=== PATIENT | male | born 1965 | race Caucasian/White ===

== ENCOUNTER 2016-12-17 12:09 | Emergency (ER) | payer OTHER ==
[2016-12-17] MEDS ORDERED: NAPROXEN 250 MG TABLET PO ONE (12:35)
--- NOTE | 2016-12-17 12:37 | ER Document Report ---
ED Medical Screen (RME) - General Chief Complaint: Back Pain Stated Complaint: FALL BACK PAIN Mode of Arrival: Ambulatory Information source: Patient Notes: 51 y/o M presents to ED complaining of left sided lower back pain after fall 2 days ago. Patient reports was opening a door of work trailer when his foot slipped and twisted his back landing on his left side. Denies extremity weakness or paresthesias. I have greeted and performed a rapid initial assessment of this patient. A comprehensive ED assessment and evaluation of the patient, analysis of test results and completion of the medical decision making process will be conducted by additional ED providers. TRAVEL OUTSIDE OF THE [place] IN LAST 30 DAYS: No - Related Data Allergies/Adverse Reactions: No Known Allergies Allergy (Unverified 12/17/16 12:35) Past Medical History - Social History Chew tobacco use (# tins/day): No Frequency of alcohol use: Occasional Drug Abuse: None Renal/ Medical History: Denies: Hx Peritoneal Dialysis Physical Exam - General General appearance: Appears well, Alert In distress: None - Respiratory Respiratory status: No respiratory distress
[2016-12-17] MEDS ORDERED: OXYCODONE-ACETAMINOPHEN 5-325 MG TABLET PO ONE (14:37)
--- NOTE | 2016-12-17 14:37 | ER Document Report ---
ED Neck/Back Problem - General Mode of Arrival: Ambulatory Information source: Patient TRAVEL OUTSIDE OF THE [place] IN LAST 30 DAYS: No - HPI Patient complains to provider of: Pain, Lower back Onset: Other - 4 days Associated symptoms: Other - See above <VALERIANO LANGSTON - Last Filed: 12/17/16 15:16> <STUARTRUBY KATHY - Last Filed: 12/17/16 18:18> - General Chief Complaint: Back Pain Stated Complaint: FALL BACK PAIN Notes: Patient is a 51 year old male who presents to the emergency department complaining of back pain secondary to a fall 4 days ago. Patient reports that he was walking up a ramp of a water tank when he twisted and fell off the ramp onto his back. Patient reports that the pain is centered in his lower back bilaterally with more pain on his right side. Patient reports that the pain has been pretty consistent since the incident. Patient states that it is painful to walk and difficult to stand up due to the pain. Patient reports that soon after the incident he had tingling in his right foot but that has since subsided. Patient denies any difficulties urinating. (VALERIANO LANGSTON) - Related Data Allergies/Adverse Reactions: No Known Allergies Allergy (Unverified 12/17/16 12:35) Past Medical History - General Information source: Patient - Social History Smoking Status: Never Smoker Chew tobacco use (# tins/day): No Frequency of alcohol use: Occasional Drug Abuse: None Family History: Reviewed & Not Pertinent Patient has suicidal ideation: No Patient has homicidal ideation: No - Past Medical History Cardiac Medical History: Reports: Hx Hypertension <VALERIANO LANGSTON - Last Filed: 12/17/16 15:16> Review of Systems - Review of Systems Constitutional: No symptoms reported EENT: No symptoms reported Cardiovascular: No symptoms reported Respiratory: No symptoms reported Gastrointestinal: No symptoms reported Genitourinary: See HPI, Other - Difficulty urinating Male Genitourinary: No symptoms reported Musculoskeletal: See HPI, Back pain Skin: No symptoms reported Hematologic/Lymphatic: No symptoms reported Neurological/Psychological: No symptoms reported -: Yes All other systems reviewed and negative <VALERIANO LANGSTON - Last Filed: 12/17/16 15:16> Physical Exam - Vital signs Interpretation: Normal - General General appearance: Appears well, Alert - HEENT Head: Normocephalic, Atraumatic - Respiratory Respiratory status: No respiratory distress Chest status: Nontender Breath sounds: Normal Chest palpation: Normal - Cardiovascular Rhythm: Regular Heart sounds: Normal auscultation Murmur: No - Back Back: Other - No mid-line tenderness to palpation. Right flank and right paraspinal region between L3 and L5 tender to palpation. Strength and range of motion in tact. - Extremities General upper extremity: Normal inspection, Normal ROM, Normal strength General lower extremity: Normal inspection, Normal ROM, Normal strength, Normal weight bearing - Neurological Neuro grossly intact: Yes Cognition: Normal Orientation: AAOx4 [place] Coma Scale Eye Opening: Spontaneous [place] Coma Scale Verbal: Oriented Mayra Coma Scale Motor: Obeys Commands [place] Coma Scale Total: 15 Speech: Normal Motor strength normal: LUE, RUE, LLE, RLE - Psychological Associated symptoms: Normal affect, Normal mood - Skin Skin Temperature: Warm Skin Moisture: Dry Skin Color: Normal <VALERIANO LANGSTON - Last Filed: 12/17/16 15:16> Course <VALERIANO LANGSTON - Last Filed: 12/17/16 15:16> - Diagnostic Test Radiology reviewed: Reports reviewed <RUBY DAVIDSON - Last Filed: 12/17/16 18:18> - Re-evaluation Re-evalutation: 12/17/16 No acute findings on x-ray. Patient will be discharged home to follow-up with pain management and a primary doctor. Stable for discharge. Return immediately if any worsening or concerning symptoms. No weakness, paresthesias , retention, or incontinence. Stable for discharge. Agrees with plan. ( RUBY DAVIDSON) - Vital Signs Vital signs: Temp Pulse Resp BP Pulse Ox 97.9 F 94 18 185/113 H 98 12/17/16 12:30 12/17/16 12:30 12/17/16 12:30 12/17/16 12:30 12/17/16 12:30 Discharge <VALERIANO LANGSTON - Last Filed: 12/17/16 15:16> <RUBY DAVIDSON - Last Filed: 12/17/16 18:18> - Discharge Clinical Impression: Low back strain Qualifiers: Encounter type: initial encounter Qualified Code(s): S39.012A - Strain of muscle, fascia and tendon of lower back, initial encounter Condition: Stable Disposition: HOME, SELF-CARE Instructions: Low Back Pain ([facility]), Muscle Strain ([facility]), Ice Packs ([facility]), Warm Packs ([facility]), Oral Narcotic Medication ([facility]) Prescriptions: Carisoprodol [Soma 350 Mg Tablet] 350 mg PO DAILY #30 tablet Oxycodone HCl/Acetaminophen [Percocet 5-325 mg Tablet] 1 - 2 tab PO Q4H PRN #20 tablet PRN Reason: Forms: Special Work Note, Return to Work Referrals: LAINE JASSO MD [ACTIVE STAFF] - Follow up as needed Scribe Attestation: 12/17/16 18:18 I personally performed the services described in the documentation, reviewed and edited the documentation which was dictated to the scribe in my presence, and it accurately records my words and actions. (RUBY DAVIDSON) Scribe Documentation - Scribe Written by Scribe:: ezio Solares, 12/17/16, 1525 acting as scribe for :: Stuart <VALERIANO LANGSTON - Last Filed: 12/17/16 15:16>
[2016-12-17] MEDS ORDERED: CARISOPRODOL 350 MG TABLET PO ONE (16:40)
[2016-12-17 17:02] VITALS: BP 185/113
== END 2016-12-17 17:29 | disposition home or self-care (01) ==
LOC: ER 12:09
DX: S39.012A Strain of muscle, fascia and tendon of lower back, initial encounter (principal); W10.2XXA Fall (on)(from) incline, initial encounter; Y93.89 Activity, other specified; Y92.89 Other specified places as the place of occurrence of the external cause; Y99.0 Civilian activity done for income or pay; M54.5 Low back pain; I10 Essential (primary) hypertension; R39.9 Unspecified symptoms and signs involving the genitourinary system
CPT/HCPCS: 99283; 72110; J3490